=== PATIENT | female | born 1965 | race Caucasian/White ===

== ENCOUNTER → 2017-12-12 | Outpatient (CLI) | payer SELFPAY ==
[2017-12-12 11:37] LABS: Basophils % (A) 0 %; Eosinophils # (A) 0.2 k/uL (0-0.7); Eosinophils % (A) 2 %; HCT 42.5 % (34.0-46.0); HGB 13.6 gm/dL (11.4-16.0); Lymphocytes # (A) 1.4 k/uL (1.0-4.8); Lymphocytes % (A) 21 %; MCH 29.1 pg (25.0-35.0); MCV 90.9 fL (80.0-100.0); Mean Platelet Volume 7.2; Monocytes # (A) 0.5 k/uL (0-1.0); Monocytes % (A) 7 %; Neutrophils # (A) 4.4 k/uL (1.3-7.7); Neutrophils % (A) 67 %; Platelet Count 324 k/uL (150-450); RBC 4.67 m/uL (3.80-5.40); RDW 13.9 % (11.5-15.5); WBC 6.6 k/uL (3.8-10.6)
[2017-12-12 11:57] LABS: INR 1.1 (<1.2); Prothrombin Time 10.4 sec (9.0-12.0)
== END | disposition home or self-care (01) ==
LOC: LABPAT 10:51
PROVIDERS: ATTEND Orthopaedic Surgery
DX: Z01.812 Encounter for preprocedural laboratory examination (principal); M70.42 Prepatellar bursitis, left knee
CPT/HCPCS: 36415; 85025; 85610

== ENCOUNTER → 2017-12-20 | Day surgery (SDC) | payer OTHER ==
[2017-12-17 14:14] VITALS: BMI 50.1
--- NOTE | 2017-12-19 08:53 | HP ---
HISTORY AND PHYSICAL CHIEF COMPLAINT: Left knee swelling and pain. 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 She notes anterior stiffness along with swelling. She has tried medications along with a previous aspiration. She is having persistence of her symptoms. PAST MEDICAL HISTORY: Negative. PAST SURGICAL HISTORY: Significant for cholecystectomy and tonsillectomy. CURRENT MEDICATIONS: Ibuprofen. She denies drug allergies. FAMILY HISTORY: Significant for heart disease. SOCIAL HISTORY: Negative for current tobacco or alcohol use. 16 POINT REVIEW OF SYSTEMS: Otherwise reviewed and is noncontributory. PHYSICAL EXAMINATION: On examination, the patient is approximately 5 foot 8, 370 pounds of endomorphic habitus. HEENT exam is nonfocal. Neck is supple. She has painless passive motion of her left hip. Straight leg raise is negative. Active motion left knee -12 to 100 degrees of flexion. She has large prepatellar swelling. There is no warmth or erythema. She is nontender about the medial and lateral joint line. Collaterals are stable, Asia is negative, Zaira's is negative. Her distal neurovascular exam appears intact in the left lower extremity. IMPRESSION: 1. Left knee prepatellar bursitis-traumatic with hematoma. 2. Increased body mass index. RECOMMENDATIONS: I talked to the patient at length regarding her condition and treatment options. At this point, she remains quite symptomatic despite conservative measures. After a thorough discussion, she opts to proceed with surgery. We will plan to proceed with incision and drainage with evacuation of her hematoma and bursectomy. We will likely perform that as an outpatient procedure. Risks and benefits were discussed at length in layman's terms. MMODL / IJN: [id number] /
[~2017-12-20] MED LIST: DEXAMETHASONE SOD PHOSPHATE 10 MG/ML 1 ML VIAL IV ONE; LACTATED RINGERS 1,000 ML IV SCH; LIDOCAINE 1% 20 ML VIAL (10MG/ML) FOR IV START INTRADERMA PRN; LIDOCAINE 1% INJ 10MG/ML (20 ML MDV) ONE; MIDAZOLAM 2 MG/2 ML VIAL IV PRN; MIDAZOLAM 2 MG/2 ML VIAL ONE; ONDANSETRON 4 MG/2 ML VIAL IVP ONE; PROPOFOL 10 MG/ML 20 ML VIAL IV ONE; SCOPOLAMINE 1.5MG/72HR PATCH TRANSDERM ONE; SUCCINYLCHOLINE CHLORIDE 100 MG/5 ML SYR IV ONE; diphenhydrAMINE 50 MG/ML 1 ML VIAL IVP ONE; fentaNYL (PF) 50 MCG/ML 2 ML AMP ONE
--- NOTE | 2017-12-20 10:27 | P.OP ---
Date of Procedure: 12/20/17 Preoperative Diagnosis: Traumatic left knee prepatellar bursitis/hematoma Postoperative Diagnosis: Same Procedure(s) Performed: Incision and drainage with hematoma evacuation left prepatellar bursa/partial bursectomy Anesthesia: SUZE Surgeon: Vance Padilla Estimated Blood Loss (ml): 10 Pathology: none sent Condition: stable Disposition: PACU Indications for Procedure: The patient's a 52-year-old female who presents with persistent left knee prepatellar bursitis/hematoma after a previous trauma despite a trial of conservative measures. A discussion of the risks and benefits of operative intervention was made with the patient. She opted to proceed. Operative risks to include recurrence of hematoma, infection and possible need for subsequent procedures was discussed. Informed consent was obtained. Operative Findings: As below Description of Procedure: The patient was brought to the operating room, and after induction of general anesthesia the left lower extremity was prepped and draped in normal fashion. The tourniquet was inflated to 270 mmHg. A 3 cm incision was then made over the anterior aspect of the left knee over the palpable hematoma. The skin was incised sharply. The subcutaneous tissues were divided bluntly. A large hematoma was encountered and was evacuated. A portion of the bursal tissue was thickened and was debrided sharply. Electrocautery was used for hemostasis. This was then thoroughly irrigated with normal saline. The potential space was closed with 2-0 Vicryl sutures. The subcutaneous tissues reapproximated in a similar fashion. The skin was reapproximated with 3-0 subcu Prolene suture. Steri-Strips were applied as well as a compressive dressing. The tourniquet was deflated less than 20 minutes total tourniquet time. The patient was then awoken from general anesthesia and transferred to recovery room in good condition. Blood loss was estimated at 10 mL. No complications were incurred. Sponge and needle counts were correct at the end of the case.
[2017-12-20] MEDS: MORPHINE SULFATE 4 MG/ML SYRINGE IV PRN ×4 (10:36→11:01)
[2017-12-20 10:51] VITALS: TEMP 96.8
[2017-12-20 11:05] VITALS: RESP 16
[2017-12-20 11:42] VITALS: PULSE 72
[2017-12-20 11:50] VITALS: BP 112/62
== END | disposition home or self-care (01) ==
LOC: OR 08:05
PROVIDERS: ATTEND Orthopaedic Surgery
DX: S80.02XA Contusion of left knee, initial encounter (principal); X58.XXXA Exposure to other specified factors, initial encounter; M70.42 Prepatellar bursitis, left knee; E66.01 Morbid (severe) obesity due to excess calories; Z68.43 Body mass index [BMI] 50.0-59.9, adult; Z79.1 Long term (current) use of non-steroidal anti-inflammatories (NSAID)
CPT/HCPCS: 81025; 27301; J2250; J2270; J1200; J1100; J0690; J2405; J2001; J3010; J0330; J2704

== ENCOUNTER 2017-12-29 12:22 | Emergency (ER) | payer OTHER ==
[2017-12-29 13:00] VITALS: RESP 18
--- NOTE | 2017-12-29 14:25 | ED ---
Extremity Problem HPI - General Chief complaint: Extremity Problem,Nontraumatic Stated complaint: Fluid coming out of knee-post surgical Time Seen by Provider: 12/29/17 13:21 Source: patient Mode of arrival: ambulatory Limitations: no limitations - History of Present Illness Initial comments: This 52-year-old white female presents with a complaint of some drainage from her left knee. She has a history of traumatic bursitis which initially occurred after a fall in August 2017. It had been fairly persistent and she followed up with Dr. Todd from orthopedics. He drained the bursitis in the office but unfortunately it did recur. She had surgery for further drainage approximately 10 days ago. She states that she was tying her shoe today when a large arreola of fluid came out of the wound. It was a serosanguineous type drainage. She denies any associated erythema. Her sutures still are present and are to be removed in one week. She just followed up with her doctor a couple days ago and was told that the sutures would be removed in one week. She denies any fevers or chills. No other complaints or modifying factors. - Related Data Previous Rx's Medication Instructions Recorded Hydrocodone/Acetaminophen [[place] 1 each PO Q6HR PRN #20 tab 12/20/17 5-325] Cephalexin [Keflex] 500 mg PO Q6HR #40 cap 12/29/17 Allergies Allergy/AdvReac Type Severity Reaction Status Date / Time No Known Allergies Allergy Verified 12/29/17 13:00 Review of Systems ROS Statement: Those systems with pertinent positive or pertinent negative responses have been documented in the HPI. ROS Other: All systems not noted in ROS Statement are negative. Past Medical History Past Medical History: No Reported History History of Any Multi-Drug Resistant Organisms: None Reported Past Surgical History: Cholecystectomy Past Psychological History: No Psychological Hx Reported Smoking Status: Never smoker Past Alcohol Use History: None Reported Past Drug Use History: None Reported General Exam Limitations: no limitations Extremities exam: Absent: tenderness, joint swelling, calf tenderness Neurological exam: Present: alert, oriented X3 Psychiatric exam: Present: normal affect, normal mood Skin exam: Present: other (There is a vertical wound noted over the anterior aspect of the left knee. There is a serosanguineous drainage coming from the wound. There is a moderate amount of fluid noted that has drained. Additional fluid is expressed. There is a mild malodorous scent. There are stitches still present but it appears that there is an approximately 1 cm area of dehiscence noted on the inferior aspect of the wound.) Course Vital Signs 12/29/17 12:56 Temperature 97.2 F L Pulse Rate 72 Respiratory 18 Rate Blood Pressure 135/79 O2 Sat by Pulse 100 Oximetry Medical Decision Making - Medical Decision Making The patient was seen and examined. A culture was taken of the wound. The wound was dressed with a bulky dressing with Kerlix and a Kali wrap. The case is discussed with Dr. Hinkle and he recommends her being placed on some Keflex as well as follow-up with Dr. Todd in the office tomorrow. She will be continued on the bulky dressings for tonight. She is agreeable with this plan and leaves in no distress. Disposition Clinical Impression: Seroma after procedure Disposition: HOME SELF-CARE Condition: Good Instructions: Wound Dehiscence (ED), Care For Your Stitches (ED) Additional Instructions: We discussed her care with Dr. Hinkel today. He would like you to follow-up in the office with Dr. Todd tomorrow. Please call the office the first thing in the morning and make sure that you see Dr. Todd. Please follow-up with your culture results in 3 days. Prescriptions: Cephalexin [Keflex] 500 mg PO Q6HR #40 cap Is patient prescribed a controlled substance at d/c from ED?: No Referrals: Modesto Iraheta MD [Primary Care Provider] - 1-2 days Vance Padilla MD [STAFF PHYSICIAN] - 12/30/17 Time of Disposition: 14:26
[2017-12-29 14:44] VITALS: BP 139/88; PULSE 82; TEMP 98.2
== END 2017-12-29 14:48 | disposition home or self-care (01) ==
LOC: EC 12:22
DX: M96.843 Postprocedural seroma of a musculoskeletal structure following other procedure (principal); Z98.890 Other specified postprocedural states
CPT/HCPCS: 87070; 87205; 99283

== ENCOUNTER → 2018-04-23 | Outpatient (CLI) | payer OTHER ==
[2018-04-23 12:18] LABS: Basophils % (A) 1 %; Eosinophils # (A) 0.2 k/uL (0-0.7); Eosinophils % (A) 4 %; HCT 43.5 % (34.0-46.0); HGB 13.3 gm/dL (11.4-16.0); Lymphocytes # (A) 1.3 k/uL (1.0-4.8); Lymphocytes % (A) 28 %; MCH 28.4 pg (25.0-35.0); MCHC 30.7 g/dL (31.0-37.0); MCV 92.5 fL (80.0-100.0); Mean Platelet Volume 6.7; Monocytes # (A) 0.3 k/uL (0-1.0); Monocytes % (A) 6 %; Neutrophils # (A) 2.6 k/uL (1.3-7.7); Neutrophils % (A) 57 %; Platelet Count 297 k/uL (150-450); RBC 4.71 m/uL (3.80-5.40); RDW 14.4 % (11.5-15.5); WBC 4.6 k/uL (3.8-10.6)
[2018-04-23 13:45] LABS: Erythrocyte Sedimentation Rate 14 mm/hr (0-20)
== END | disposition home or self-care (01) ==
LOC: LABWHC1 11:48
PROVIDERS: ATTEND Orthopaedic Surgery
DX: M70.52 Other bursitis of knee, left knee (principal)
CPT/HCPCS: 36415; 85025; 85652; 86140

== ENCOUNTER 2018-04-25 07:36 | Day surgery (SDC) | payer OTHER ==
[2018-04-24 10:18] VITALS: BMI 50.9
--- NOTE | 2018-04-24 10:20 | HP ---
HISTORY AND PHYSICAL CHIEF COMPLAINT: Left knee swelling and drainage. 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 She had undergone incision and drainage of a prepatellar bursitis with hematoma evacuation in December of 2017. She notes she is having persistence of her wound along with drainage. She has been on oral antibiotics per her infectious disease specialist. She is working without restrictions. She denies fevers or chills. PAST MEDICAL HISTORY: Negative. PAST SURGICAL HISTORY: Significant for cholecystectomy, tonsillectomy, adenoidectomy, in addition to irrigation and debridement left knee prepatellar bursitis. CURRENT MEDICATIONS: Cefuroxime. ALLERGIES: She denies drug allergies. FAMILY HISTORY: Significant for heart disease. SOCIAL HISTORY: Negative for current tobacco or alcohol use. REVIEW OF SYSTEMS: Sixteen-point review of systems otherwise reviewed and is noncontributory. PHYSICAL EXAMINATION: On examination, the patient is approximately 5 feet 8 inches, 320 pounds of endomorphic habitus. HEENT exam is nonfocal. Neck is supple. She has painless passive motion of the left hip. Straight leg raise is negative. Active motion left knee -8 to 130 degrees of flexion. She does have a 2 x 3 mm opening about the distal aspect of her incision. There is some expressible white material and drainage. There is no warmth or erythema. She is nontender about the medial and lateral joint line. Homans is negative. Her distal neurovascular exam appears intact in the left lower extremity. IMPRESSION: History of irrigation and debridement of left knee prepatellar bursitis with sinus tract formation. RECOMMENDATIONS: I talked to the patient at length regarding her condition and treatment options. At this point, we will plan to proceed with irrigation and debridement with wound revision. We will likely perform that as an outpatient procedure. Risks and benefits were discussed at length in layman's terms. MMODL / IJN: [id number] /
[~2018-04-25 07:36] MED LIST changes: -LIDOCAINE 1% INJ 10MG/ML (20 ML MDV) ONE; -MIDAZOLAM 2 MG/2 ML VIAL IV PRN; -MIDAZOLAM 2 MG/2 ML VIAL ONE; -PROPOFOL 10 MG/ML 20 ML VIAL IV ONE; -SUCCINYLCHOLINE CHLORIDE 100 MG/5 ML SYR IV ONE; -diphenhydrAMINE 50 MG/ML 1 ML VIAL IVP ONE; -fentaNYL (PF) 50 MCG/ML 2 ML AMP ONE
[2018-04-25 08:23] VITALS: RESP 16
[2018-04-25] MEDS ORDERED: LIDOCAINE 1% INJ 10MG/ML (20 ML MDV) ONE (09:26)
[2018-04-25] MEDS ORDERED: fentaNYL (PF) 50 MCG/ML 2 ML AMP ONE (09:26)
[2018-04-25] MEDS ORDERED: ePHEDrine SULFATE/0.9% NACL/PF 50 MG/5 ML SYRINGE IV ONE (09:26)
[2018-04-25] MEDS ORDERED: KETOROLAC 30 MG/ML 1 ML VIAL ONE (09:26)
[2018-04-25] MEDS ORDERED: MIDAZOLAM 2 MG/2 ML VIAL ONE (09:26)
[2018-04-25] MEDS ORDERED: PROPOFOL 10 MG/ML 20 ML VIAL IV ONE (09:26)
[2018-04-25] MEDS ORDERED: SUCCINYLCHOLINE CHLORIDE 100 MG/5 ML SYR IV ONE (09:26)
[2018-04-25] MEDS ORDERED: ceFAZolin 1,000 MG in SODIUM CHLORIDE 0.9% 1,000 ML IRRIGATION ONE (09:53)
--- NOTE | 2018-04-25 10:15 | P.OP ---
Date of Procedure: 04/25/18 Preoperative Diagnosis: Left knee prepatellar bursitis with sinus tract Postoperative Diagnosis: Same Procedure(s) Performed: Incision and drainage with irrigation and debridement left knee prepatellar bursitis Anesthesia: SUZE Surgeon: Vance Padilla Estimated Blood Loss (ml): 10 Pathology: none sent Condition: stable Disposition: PACU Indications for Procedure: The patient is a 52-year-old female who previously underwent irrigation and debridement for a left knee prepatellar bursitis/hematoma who presents with a persistent sinus tract/drainage despite conservative measures. A discussion of the risks and benefits of operative intervention was made with the patient. She opted to proceed. Operative risks to include recurrence of infection, recurrence of wound drainage and need for subsequent procedures was discussed. Informed consent was obtained. Operative Findings: As below Description of Procedure: The patient was brought to the operating room, and after induction of general anesthesia the left lower extremity was prepped and draped in normal fashion. The 2 x 3 mm sinus tract was then excised and the incision extended 2 cm over the anterior aspect of the left knee. The skin and subcu tissues were divided sharply. The edges of the wound were debrided sharply with a scalpel and tissue removed. Fibrous tissue was excised with a scalpel down to the anterior aspect of the patella excising the bursal tissue as well. The wound was copiously irrigated. The subcutaneous tissues were reapproximated utilizing interrupted 2-0 Vicryl suture. The skin was reapproximated with simple 3-0 nylon suture. A sterile dressing was applied. The patient was awoken from general anesthesia and transferred to recovery room in good condition. Blood loss was estimated at 10 mL. No complications were incurred. Sponge and needle counts were correct at the end of the case.
[2018-04-25 10:20] VITALS: TEMP 97.4
[2018-04-25] MEDS: HYDROmorphone 0.5 MG/0.5 ML SYRINGE IVP PRN ×2 (10:41→11:05)
[2018-04-25 11:39] VITALS: BP 108/70; PULSE 81
== END 2018-04-25 11:57 | disposition home or self-care (01) ==
LOC: OR 07:36
PROVIDERS: ATTEND Orthopaedic Surgery
DX: M70.42 Prepatellar bursitis, left knee (principal); Z79.2 Long term (current) use of antibiotics; E66.01 Morbid (severe) obesity due to excess calories; Z68.43 Body mass index [BMI] 50.0-59.9, adult
CPT/HCPCS: 27340; J2250; J1100; J0690 ×2; J2405; J2001; J3010; J1885; J0330; J2704; J1170

== ENCOUNTER 2019-10-06 10:54 | Day surgery (SDC) | payer BC, OTHER ==
[2019-10-05 09:11] VITALS: BMI 53.2
[~2019-10-06 10:54] MED LIST changes: -DEXAMETHASONE SOD PHOSPHATE 10 MG/ML 1 ML VIAL IV ONE; -ONDANSETRON 4 MG/2 ML VIAL IVP ONE; -SCOPOLAMINE 1.5MG/72HR PATCH TRANSDERM ONE
[2019-10-06 11:21] VITALS: TEMP 98.6
[2019-10-06] MEDS ORDERED: PROPOFOL 10 MG/ML 20 ML VIAL IV ONE (13:05)
--- NOTE | 2019-10-06 13:43 | P.PCN ---
Date of Procedure: 10/06/19 Description of Procedure: BRIEF HISTORY: Patient is a 54 -year-old pleasant female presenting for outpatient colonoscopy for evaluation for screening for malignant neoplasm of the colon. No prior colonoscopies. No family history of colon cancer. Patient does report alternating constipation and diarrhea. PROCEDURE PERFORMED: Colonoscopy with biopsy. PREOPERATIVE DIAGNOSIS: Screening for malignant neoplasm of the colon, no prior colonoscopies. ESTIMATED BLOOD LOSS: Minimal. IV sedation per Anesthesia. PROCEDURE: After informed consent was obtained, the patient, was brought into the endoscopy unit. IV sedation was administered by Anesthesia under continuous monitoring. Digital rectal examination was normal. Initially the Olympus CF-190 flexible video colonoscope was then inserted in the rectum, gradually advanced into the cecum without any difficulty. Careful examination was performed as the scope was gradually being withdrawn. Ileocecal valve and the appendiceal orifice were visualized and appeared normal. Prep was good. Mucosa of the cecum, ascending colon, transverse colon, descending colon, sigmoid colon, and rectum appeared normal, with random biopsies of the right and left colon in the setting of altered bowel function. Retroflexion was performed in the rectum and no lesions were seen, low-grade internal hemorrhoids. The patient tolerated the procedure well. IMPRESSION: Normal-appearing colon from rectum to cecum, with biopsies of the right and left colon in the setting of altered bowel function. RECOMMENDATIONS: Findings of this examination were discussed with the patient and her . Okay to resume diet. Okay to resume medications. Await pathology from biopsies. Would recommend repeat colonoscopy in 10 years for screening purposes or sooner if signs or symptom further evaluation develop.
[2019-10-06 14:15] VITALS: BP 102/67; PULSE 88; RESP 20
== END 2019-10-06 14:16 | disposition home or self-care (01) ==
LOC: ORWHC2ENDO 10:54
PROVIDERS: ATTEND Internal Medicine
DX: R19.7 Diarrhea, unspecified (principal); K59.00 Constipation, unspecified; K64.8 Other hemorrhoids; K21.9 Gastro-esophageal reflux disease without esophagitis; E66.9 Obesity, unspecified; Z68.43 Body mass index [BMI] 50.0-59.9, adult; Z87.891 Personal history of nicotine dependence; Z90.89 Acquired absence of other organs; Z90.49 Acquired absence of other specified parts of digestive tract; Z98.51 Tubal ligation status
CPT/HCPCS: 81025; 88305; 45380; J2704

== ENCOUNTER → 2024-01-24 | Outpatient (CLI) | payer BC ==
--- NOTE | 2024-01-29 23:16 | MR ---
EXAMINATION TYPE: MR hip RT wo con DATE OF EXAM: 01/24/2024 COMPARISON: None. HISTORY: Rt hip pain and limited movement since January 08, 2024 after fall injury. Fracture of neck per order. Standard multiplanar, multisequence MRI departmental protocol Multiplanar, multisequence images of the pelvis focusing on the right hip were acquired without contr ast. FINDINGS: Exam is suboptimal secondary to large body habitus along with motion artifact degradation. Symmetric moderate to severe axial joint space loss with mild to moderate acetabular spurring is seen . Small fairly symmetric hip joint effusions are identified. Femoral head shapes are maintained bilat erally. Right hip does show some increased T2 signal or edema at the subtrochanteric region seen best on coronal image 12 series 401. No linear diminished T1 signal in the femoral head is identified to suggest avascular necrosis. Small amount of focal fluid at the level of the right lesser trochanter i s seen. Symmetric mild fluid signal of the greater trochanters of both hips is identified. Some benig n-appearing subcentimeter groin lymph nodes are present bilaterally. No groin hernia is seen. Muscle bulk is symmetric and the bilateral hips. No abnormal bowel dilatation. Anteverted uterus is present. No free fluid in the pelvis is noted. IMPRESSION: 1. 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 2. Suboptimal study with focal abnormal bone marrow edema in the subtrochanteric region of the right hip. 3. Bilateral insertional tendinosis at level of the greater trochanter. Right sided insertional tendi nosis of level of the lesser trochanter.
== END | disposition home or self-care (01) ==
LOC: RADMRIMAIN 05:59
PROVIDERS: ATTEND Family Medicine
DX: M16.0 Bilateral primary osteoarthritis of hip (principal); M67.853 Other specified disorders of tendon, right hip; S72.001A Fracture of unspecified part of neck of right femur, initial encounter for closed fracture; W19.XXXA Unspecified fall, initial encounter